=== PATIENT | female | born 1990 | race African-American/Black ===

== ENCOUNTER 2021-09-24 15:38 | Emergency (ER) | payer SELFPAY ==
[~2021-09-24] VITALS: Ht 165.1 cm; Wt 70.0 kg
[2021-09-24] MEDS ORDERED: ONDANSETRON HCL 4MG/2ML INJ IV STA (17:00)
[2021-09-24] MEDS ORDERED: SODIUM CHLORIDE 0.9% 1,000 ML IV ONE (17:00)
[2021-09-24] MEDS ORDERED: MORPHINE SULFATE 4 MG/ML CPJ (NOT FOR IM USE) IV STA (17:00)
[2021-09-24 18:50] LABS: BASOPHILS % 0.4 % (0.0-2.0); EOSINOPHILS % 1.2 % (0.0-5.0); HEMATOCRIT. 37.9 % (36.0-48.0); MEAN CORPUSCULAR HEMOGLOBIN 29.4 pg (28.0-32.0); MEAN CORPUSCULAR VOLUME 92.9 fL (81.0-99.0); MEAN PLATELET VOLUME 8.7 fl (7.4-10.4); MONOCYTES % 8.9 % (2.0-8.0); NEUTROPHILS % 45.5 % (40.0-76.0); PLATELET 256 x1000/uL (130-400); RED BLOOD CELL COUNT 4.08 mill/uL (4.2-5.4); RED CELL DISTRIBUTION WIDTH 14.7 % (11.6-14.6)
[2021-09-24 18:56] LABS: CHLORIDE 109 mEq/L (98-107)
[2021-09-24 18:58] LABS: HCG SCREEN NEGATIVE
[2021-09-24] MEDS ORDERED: IBUP-2028 MT (20:19)
[2021-09-24 20:30] VITALS: BP 148/95
== END 2021-09-24 20:40 | disposition home or self-care (01) ==
LOC: ER 15:38
DX: M54.9 Dorsalgia, unspecified (principal); M54.2 Cervicalgia
CPT/HCPCS: 36415; 70450; 71045; 72070; 72100; 72125; 73030; 73521; 73552; 80053; 81025; 84703; 85025; 96361; 96374; 96375; 99285; J2270; J2405; J7030